=== PATIENT | female | born 1995 | race American Indian/Alaskan Native ===

== ENCOUNTER 2017-08-04 11:40 | Inpatient (IN) | payer OTHER ==
[2017-08-04 13:25] LABS: Hematocrit 20.2 % (30.3-42.9); Mean Corpuscular HGB Conc 29 % (30-34); Platelet Count 409 K/mm3 (140-440); Red Blood Count 3.78 M/mm3 (3.65-5.03)
[2017-08-04 13:26] LABS: Mean Corpuscular Hemoglobin 16 pg (28-32); Mean Corpuscular Volume 53 fl (79-97)
[2017-08-04 13:27] LABS: Hemoglobin 5.9 gm/dl (10.1-14.3)
--- NOTE | 2017-08-04 14:40 | Emergency Department Report ---
ED Dizziness HPI - General Chief Complaint: Dizziness Stated Complaint: LOW HEMOGLOBIN Time Seen by Provider: 08/04/17 14:09 Source: patient Mode of arrival: Ambulatory Limitations: No Limitations - History of Present Illness Initial Comments: History of menstrual bleeding since her last period with metromenorrhagia here for soaking pads intermittently dizzy spells and low H&H no chest pain no abdominal pain no syncope negative hCG; saw [employer] doctor last week they told her she needs to call [facility] get checked because her H&H was low patient apparently waited until today. She states she has intermittent soaking of thick pads but not greater than 1 per hour for 6 hours. She denies any true syncope she denies any chest pain there is no other complaints. She doesapparently history of polycystic ovary syndrome. She did see a [employer] doctor [facility] covering the patient but doesn't know the name of that doctor. Presents to ED for evaluation of dizzy spells was standing with possible symptomatic anemia MD Complaint: dizziness, lightheadedness, near syncope -: Gradual, week(s) Timing: gradual onset Improves With: nothing Worsens With: nothing Associated Symptoms: weakness. denies: ataxia, chest pain, confusion, cough, diaphoresis, fever/chills, loss of appetite, malaise, rash, seizure, shortness of breath, syncope - Related Data Home Medications Medication Instructions Recorded Confirmed Last Taken No Known Home Medications [No 08/04/17 08/04/17 Unknown Reported Home Medications] Allergies Allergy/AdvReac Type Severity Reaction Status Date / Time No Known Allergies Allergy Unverified 08/04/17 12:03 ED Review of Systems ROS: Stated complaint: LOW HEMOGLOBIN Other details as noted in HPI Comment: All other systems reviewed and negative Constitutional: malaise, weakness. denies: diaphoresis, fever Eyes: denies: eye discharge, vision change ENT: denies: epistaxis Respiratory: denies: shortness of breath, SOB with exertion, SOB at rest, stridor Cardiovascular: denies: chest pain, palpitations, dyspnea on exertion, orthopnea , edema, syncope, paroxysmal nocturnal dyspnea Gastrointestinal: denies: diarrhea, constipation, hematemesis, melena, hematochezia Genitourinary: abnormal menses, other (junior metromenorrhagia) Skin: denies: rash, lesions Neurological: denies: headache, weakness Psychiatric: anxiety Hematological/Lymphatic: denies: easy bleeding, easy bruising ED Past Medical Hx - Past Medical History Previous Medical History?: Yes Additional medical history: Polycystic ovarian syndrome - Surgical History Past Surgical History?: No - Social History Smoking Status: Never Smoker Substance Use Type: None - Medications Home Medications: Home Medications Medication Instructions Recorded Confirmed Last Taken Type No Known Home Medications [No 08/04/17 08/04/17 Unknown History Reported Home Medications] ED Physical Exam - General Limitations: No Limitations General appearance: alert, anxious - Head Head exam: Present: atraumatic, normocephalic - Eye Eye exam: Present: PERRL, EOMI - ENT ENT exam: Present: normal exam, normal orophraynx - Neck Neck exam: Present: normal inspection. Absent: tenderness, meningismus - Respiratory Respiratory exam: Present: normal lung sounds bilaterally. Absent: respiratory distress, wheezes, rales, rhonchi, stridor, accessory muscle use - Cardiovascular Cardiovascular Exam: Present: regular rate, other (not orthostatic by vital signs but was dizzy with standing). Absent: normal rhythm - GI/Abdominal GI/Abdominal exam: Present: soft. Absent: distended, tenderness, guarding, rebound, organomegaly, pulsatile mass - External exam: Present: normal external exam Speculum exam: Present: vaginal bleeding, other ([id number] vaginal bleeding no adnexal mass or tenderness no cervical motion tenderness) - Extremities Exam Extremities exam: Present: normal inspection, normal capillary refill. Absent: pedal edema, joint swelling - Back Exam Back exam: Present: normal inspection. Absent: CVA tenderness (R), CVA tenderness (L), muscle spasm, paraspinal tenderness, vertebral tenderness - Neurological Exam Neurological exam: Present: alert, oriented X3, CN II-XII intact. Absent: motor sensory deficit - Psychiatric Psychiatric exam: Present: anxious ED Course Vital Signs 08/04/17 08/04/17 08/04/17 11:58 14:58 15:07 Temperature 98.9 F Pulse Rate 81 84 Respiratory 16 16 16 Rate Blood Pressure 110/45 Blood Pressure 105/63 [Right] O2 Sat by Pulse 100 100 100 Oximetry ED Medical Decision Making - Lab Data Result diagrams: 08/04/17 13:04 08/04/17 14:38 - EKG Data -: EKG Interpreted by Me EKG shows normal: sinus rhythm Rate: normal - Radiology Data Radiology results: report reviewed - Medical Decision Making Patient is dizzy on standing however vital signs were stable. Her H&H was low with a hemoglobin of 5. Case was discussed with Dr. Irwin was on-call for [employer] given the vaginal bleeding. We will admit the patient for blood transfusion. Further evaluation by [employer]. Critical care attestation.: If time is entered above; I have spent that time in minutes in the direct care of this critically ill patient, excluding procedure time. ED Disposition Clinical Impression: Symptomatic anemia, Menorrhagia Disposition: OP ADMIT IP TO THIS HOSP Is pt being admited?: Yes Condition: Stable Referrals: PRIMARY CARE, [Primary Care Provider] - 3-5 Days Time of Disposition: 15:34
--- NOTE | 2017-08-04 14:56 | XRay Report ---
AP CHEST: HISTORY: Anemia AP view of the chest demonstrates a normal mediastinal and cardiac contour with clear lungs and normal bony and soft tissue structures. IMPRESSION: Unremarkable AP chest.
[2017-08-04] MEDS ORDERED: NACL 0.9% 1000 ML 1,000 ML IV ONE (15:13)
[2017-08-04 15:15] LABS: BUN/Creatinine Ratio 13; Blood Urea Nitrogen 8 mg/dL (7-17); Calcium 8.9 mg/dL (8.4-10.2); Hemolysis Index 2
[2017-08-04] MEDS ORDERED: ZOFRAN IV PRN (23:21)
[2017-08-04] MEDS ORDERED: AMBIEN PO PRN (23:21)
[2017-08-04] MEDS ORDERED: SODIUM CHLORIDE FLUSH SYRINGE 10 ML IV PRN (23:21)
[2017-08-04] MEDS ORDERED: BENADRYL IV PRN (23:21)
[2017-08-04] MEDS ORDERED: TYLENOL PO PRN (23:21)
[2017-08-04] MEDS ORDERED: NACL 0.9% 500 ML 500 ML IV ONE (23:21)
[2017-08-04] MEDS ORDERED: MOTRIN PO PRN (23:21)
--- NOTE | 2017-08-05 09:06 | History and Physical Report ---
History of Present Illness Date of examination: 08/05/17 Date of admission: 08/04/17 20:03 Chief complaint: I'm dizzy History of present illness: Patient is a 22 year old female who presented to the ED from her doctor office with menorrhagia and secondary anemia. Patient has a hgb of 5. Patient is actually seen by [facility] but was admitted as a walk in. She is hemodynamically stable but has symptoms of anemia Medications and Allergies Allergies Allergy/AdvReac Type Severity Reaction Status Date / Time No Known Allergies Allergy Verified 08/04/17 23:29 Home Medications Medication Instructions Recorded Confirmed Last Taken Type No Known Home Medications [No 08/04/17 08/04/17 Unknown History Reported Home Medications] Active Meds: Active Medications Acetaminophen (Tylenol) 650 mg PO Q4H PRN PRN Reason: Pain MILD(1-3)/Fever >100.5/MOORE Last Admin: 08/05/17 00:29 Dose: 650 mg Diphenhydramine HCl (Benadryl) 25 mg IV Q6H PRN PRN Reason: Itching Last Admin: 08/05/17 00:29 Dose: 25 mg Docusate Sodium (Colace) 100 mg PO BID MAHENDRA Ibuprofen (Motrin) 600 mg PO Q6H PRN PRN Reason: Pain, Mild (1-3) Ondansetron HCl (Zofran) 4 mg IV Q8H PRN PRN Reason: Nausea And Vomiting Sodium Chloride (Sodium Chloride Flush Syringe 10 Ml) 10 ml IV BID MAHENDRA Sodium Chloride (Sodium Chloride Flush Syringe 10 Ml) 10 ml IV PRN PRN PRN Reason: LINE FLUSH Zolpidem Tartrate (Ambien) 5 mg PO QHS PRN PRN Reason: Insomnia Review of Systems All systems: negative Constitutional: fatigue, weakness, malaise Genitourinary: vaginal bleeding - Vital Signs Vital signs: Vital Signs Temp Pulse Resp BP Pulse Ox 98.9 F 81 16 110/45 100 08/04/17 11:58 08/04/17 11:58 08/04/17 11:58 08/04/17 11:58 08/04/17 11:58 Temp Pulse Resp BP Pulse Ox 97.9 F 86 20 91/41 99 08/05/17 07:31 08/05/17 07:31 08/05/17 07:31 08/05/17 07:31 08/05/17 07:31 - Physical Exam Breasts: Cardiovascular: Regular rate, Normal S1, Normal S2 Lungs: Positive: Clear to auscultation, Normal air movement Abdomen: Positive: normal appearance, soft, normal bowel sounds. Negative: distention, tenderness Genitourinary (Female): Positive: normal external genitalia, normal perenium Vulva: both: normal Vagina: Positive: normal moisture. Negative: discharge Cervix: Negative: lesion, discharge Uterus: Positive: normal size, normal contour Adnexa: both: normal Anus/Rectum: Positive: normal perianal skin, heme negative. Negative: rectal mass, hemorrhoids Extremities: Deep Tendon Reflex Grade: Normal +2 Results Result Diagrams: 08/04/17 13:04 08/04/17 14:38 Abnormal lab results 08/04/17 08/04/17 08/04/17 Range/Units 13:04 13:04 14:38 Hgb 5.9 L* (10.1-14.3) gm/dl Hct 20.2 L (30.3-42.9) % MCV 53 L (79-97) fl MCH 16 L (28-32) pg MCHC 29 L (30-34) % RDW 21.0 H (13.2-15.2) % Sodium 136 L (137-145) mmol/L Creatinine 0.6 L (0.7-1.2) mg/dL Crossmatch See Detail All other labs normal. Assessment and Plan HD 1 s/p transfusion of 2 units. Patient feeling better. H&H pending. Possible dischage on today
[2017-08-05] MEDS ORDERED: SODIUM CHLORIDE FLUSH SYRINGE 10 ML IV SCH (10:00)
[2017-08-05] MEDS ORDERED: COLACE PO SCH (10:00)
[2017-08-05 12:56] LABS: Hemoglobin 7.7 gm/dl (10.1-14.3); Mean Corpuscular HGB Conc 31 % (30-34); Platelet Count 334 K/mm3 (140-440); Red Blood Count 4.11 M/mm3 (3.65-5.03)
[2017-08-05 13:07] LABS: Mean Corpuscular Hemoglobin 19 pg (28-32); Mean Corpuscular Volume 61 fl (79-97); Red Cell Distribution Width 31.6 % (13.2-15.2)
[2017-08-05 14:16] LABS: Anisocytosis 2+; Basophils % (Manual) 0 % (0.0-1.8); Hypochromasia 2+; Ovalocytes Few; Platelet Estimate Consistent w Auto; Total Cells Counted 100
[2017-08-05 17:10] VITALS: BP 95/36
--- NOTE | 2017-08-05 18:56 | Discharge Summary ---
Providers - Providers Date of Admission: 08/04/17 20:03 Attending physician: HERON OJEDA Primary care physician: [facility] Hospitalization Condition at discharge: Stable Plan - Provider Discharge Summary Additional instructions: [] Smoking cessation referral if applicable(refer to patient education folder for contact #) [] Refer to [facility]'s [facility] Booklet Call your doctor immediately for: * Fever > 100.5 * Heavy vaginal bleeding ( >1 pad per hour) * Severe persistent headache * Shortness of breath * Reddened, hot, painful area to leg or breast * Drainage or odor from incision. * Keep incision clean and dry at all times and follow doctor's instructions regarding bathing/showering - Follow up plan Follow up: PRIMARY CARE, [Primary Care Provider] - 3-5 Days
== END 2017-08-05 20:07 | disposition home or self-care (01) | DRG 761 ==
LOC: ED 11:40 → 3A 20:03
PROVIDERS: ADMIT Obstetrics & Gynecology; ATTEND Obstetrics & Gynecology
PROC: 30233N1 Transfusion of Nonautologous Red Blood Cells into Peripheral Vein, Percutaneous Approach (ICD-10-PCS; principal; 2017-08-05)
DX: N92.0 Excessive and frequent menstruation with regular cycle (principal); D64.9 Anemia, unspecified
CPT/HCPCS: 36415; 71045; 80048; 84703; 85007; 85025; 85027; 86850; 86900; 86901; 86920; 93005; 93010; J1200; J7030; J7040; P9016